=== PATIENT | male | born 1975 | race Caucasian/White ===

== ENCOUNTER 2018-05-29 21:02 | Inpatient (IN) ==
[2018-05-30] MEDS ORDERED: Sod Chloride 0.9% Inj 1,000 ML IV.SIG ONE ×3 (04:46→08:07)
--- NOTE | 2018-05-30 04:50 | ED ---
HPI General Chief complaint: Nausea/Vomiting/Diarrhea Stated complaint: vomitting/cold symp Time Seen by Provider: 05/30/18 04:40 History of Present Illness HPI Narrative: 42-year-old male presents to the emergency department by private transportation for complaint of 4 days of nausea vomiting and diarrhea. Patient states he felt well until Thursday while mowing the grass became lightheaded near syncopal overheated went inside took a shower and subsequently has had nausea vomiting and diarrhea patient denies any known dietary indiscretion well water ingestion or foreign travel. Patient has some abdominal discomfort with vomiting or with diarrhea. Patient denies hematemesis coffee-ground emesis melena hematochezia. Patient has had fever and chills. Patient does not report any sinus pressure drainage severe sudden onset thunderclap headache neck stiffness productive cough dysuria frequency or urgency. Patient is not noticing any skin rash. Patient has history of thyroid dysfunction and no other chronic medical conditions. Patient has been taking his thyroid medication [id number] cold medications. Patient denies other concerns or complaints. Related Data Home Medications Medication Instructions Recorded Confirmed levothyroxine 50 mcg PO DAILY 05/30/18 05/30/18 Allergies Allergy/AdvReac Type Severity Reaction Status Date / Time No Known Allergies Allergy Verified 05/29/18 21:29 Review of Systems Except as stated in HPI: all other systems reviewed are negative PMFSH Medical History Medical History Hypothyroidism (Acute) Rotator cuff arthropathy (Acute) Family History Family History Other Patient denies significant medical history Social History Social History Substance History: No History of Abuse Second Hand Smoke Exposure: Yes Smoking Status: Former smoker Tobacco Type: Cigarettes How Often Do You Have a Drink Containing Alcohol: Never Recent Travel in [place] within the Last 8 Weeks: No Recent Out of Country Travel within the Last 8 Weeks: No Immunization History Tetanus Immunization: <5 Years Hx Influenza Vaccine This Season: Yes Exam Narrative Exam Narrative: GENERAL: Well-nourished, well-developed patient. No acute distress no respiratory distress SKIN: Focused skin assessment warm/dry. HEAD: Normocephalic. EYES: No scleral icterus. No injection or drainage. NECK: Supple, trachea midline. No JVD or lymphadenopathy. CARDIOVASCULAR: Regular rate and rhythm without murmurs, gallops, or rubs. RESPIRATORY: Breath sounds equal bilaterally. No accessory muscle use. GASTROINTESTINAL: Abdomen soft, non-tender, nondistended. MUSCULOSKELETAL: No cyanosis, or edema. BACK: Nontender without obvious deformity. No CVA tenderness. Course Initial Documented Vital Signs Temperature 98.4 F 05/29/18 21: Pulse Rate 86 05/29/18 21:27 Respiratory Rate 18 05/29/18 21: Blood Pressure 166/60 H 05/29/18 21:27 Pulse Oximetry 98 05/29/18 21:27 Last Documented Vital Signs Temperature 99.2 F 05/31/18 04:00 Pulse Rate 76 05/31/18 04:00 Respiratory Rate 18 05/31/18 04:00 Blood Pressure 107/55 L 05/31/18 04:00 Pulse Oximetry 94 L 05/31/18 04:00 Medical Decision Making MDM Narrative Medical decision making narrative: 42-year-old male with thyroid dysfunction presents to the emergency department 4 days of nausea vomiting diarrhea generalized abdominal discomfort associated with vomiting and diarrhea mild headache taking [id number] cold preparation without relief and presents to the emergency department for further evaluation. IV access obtained specimens collected and sent for resulting patient given bolus of normal saline and Zofran ODT Patient complains of headache given additional fluid as well as Toradol 30 mg IV [address] abdomen pelvis ordered Patient time for going to CT complains of severe headache CT brain noncontrast added to imaging study It is [address] brain noncontrast reveals no acute process CT abdomen pelvis reveals no acute intra-abdominal pelvic abnormality but does identify a right lower lobe pneumonia patient has a white count of 19,000 with a right lower lobe infiltrate/pneumonia with reported fever of 102 at home meet sirs/sepsis criterion blood cultures obtained 2 lactic acid ordered additional IV fluids administered and patient given community acquired pneumonia antibiotic coverage with 1 g of Rocephin and 500 mg of azithromycin. Admitting physician called for admission. Patient's case discussed with patient regarding admission and is agreeable. Differential Diagnosis Differential Diagnosis: Viral syndrome, gastroenteritis, inflammatory bowel disease, Medical Records Medical records reviewed: Yes I reviewed the patient's medical records. Lab Data Result diagrams: 05/30/18 05:25 05/30/18 05:25 Lab Results 05/30/18 05/30/18 05/30/18 Range/Units 05:25 05:25 05:25 WBC 19.4 H (4.0-11.0) th/mm3 RBC 4.77 (4.50-5.90) mil/mm3 Hgb 14.7 (13.0-17.0) gm/dL Hct 41.9 (39.0-51.0) % MCV 87.9 (80.0-100.0) fL MCH 30.8 (27.0-34.0) pg MCHC 35.1 (32.0-36.0) % RDW 13.9 (11.6-17.2) % Plt Count 225 (150-450) th/mm3 MPV 7.4 (7.0-11.0) fL Neut % (Auto) 82.5 H (16.0-70.0) % Lymph % (Auto) 6.6 L (9.0-44.0) % [place] % (Auto) 10.5 H (0.0-8.0) % Eos % (Auto) 0.1 (0.0-4.0) % Baso % (Auto) 0.3 (0.0-2.0) % Neut # (Auto) 16.0 H (1.8-7.7) th/mm3 Lymph # (Auto) 1.3 (1.0-4.8) th/mm3 [place] # (Auto) 2.0 H (0.0-0.9) th/mm3 Eos # (Auto) 0.0 (0.0-0.4) th/mm3 Baso # (Auto) 0.1 (0.0-0.2) th/mm3 WBC Differential . Differential Comment Auto diff final Sodium 133 L (136-145) meq/L Potassium 3.6 (3.5-5.1) meq/L Chloride 99 (98-107) meq/L Carbon Dioxide 23.8 (21.0-32.0) meq/L Anion Gap 10 (5-15) meq/L BUN 12 (7-18) mg/dL Creatinine 1.15 (0.60-1.30) mg/dL Estimated GFR 69 L (>89) mL/min Random Glucose 121 H (74-106) mg/dL Lactic Acid (0.4-2.0) mmol/L Calcium 8.7 (8.5-10.1) mg/dL Total Bilirubin 1.0 (0.2-1.0) mg/dL AST 25 (15-37) U/L ALT 25 (12-78) U/L Alkaline Phosphatase 96 (45-117) U/L Total Protein 7.7 (6.4-8.2) g/dL Albumin 3.1 L (3.4-5.0) g/dL Lipase 80 (73-393) U/L TSH 5.720 H (0.358-3.740) uIU/mL Urine Color (Yellw/Straw) Urine Clarity (Clear) Urine pH (5.0-8.5) Ur Specific [place] (1.002-1.035) Urine Protein (Neg-Trace) mg/dL Urine Glucose (UA) (Negative) mg/dL Urine Ketones (Negative) mg/dL Urine Occult Blood (Negative) Urine Nitrate (Negative) Urine Bilirubin (Negative) Urine Urobilinogen (Less than 2) mg/dL Ur Leukocyte Esterase (Negative) Urine RBC (0-3) /hpf Urine WBC (0-5) /hpf Urine Mucus (Occasional) /lpf Micro UA Comment Urine Culture Comments 05/30/18 05/30/18 Range/Units 08:23 08:23 WBC (4.0-11.0) th/mm3 RBC (4.50-5.90) mil/mm3 Hgb (13.0-17.0) gm/dL Hct (39.0-51.0) % MCV (80.0-100.0) fL MCH (27.0-34.0) pg MCHC (32.0-36.0) % RDW (11.6-17.2) % Plt Count (150-450) th/mm3 MPV (7.0-11.0) fL Neut % (Auto) (16.0-70.0) % Lymph % (Auto) (9.0-44.0) % [place] % (Auto) (0.0-8.0) % Eos % (Auto) (0.0-4.0) % Baso % (Auto) (0.0-2.0) % Neut # (Auto) (1.8-7.7) th/mm3 Lymph # (Auto) (1.0-4.8) th/mm3 [place] # (Auto) (0.0-0.9) th/mm3 Eos # (Auto) (0.0-0.4) th/mm3 Baso # (Auto) (0.0-0.2) th/mm3 WBC Differential Differential Comment Sodium (136-145) meq/L Potassium (3.5-5.1) meq/L Chloride (98-107) meq/L Carbon Dioxide (21.0-32.0) meq/L Anion Gap (5-15) meq/L BUN (7-18) mg/dL Creatinine (0.60-1.30) mg/dL Estimated GFR (>89) mL/min Random Glucose (74-106) mg/dL Lactic Acid 1.6 (0.4-2.0) mmol/L Calcium (8.5-10.1) mg/dL Total Bilirubin (0.2-1.0) mg/dL AST (15-37) U/L ALT (12-78) U/L Alkaline Phosphatase (45-117) U/L Total Protein (6.4-8.2) g/dL Albumin (3.4-5.0) g/dL Lipase (73-393) U/L TSH (0.358-3.740) uIU/mL Urine Color Joann (Yellw/Straw) Urine Clarity Hazy H (Clear) Urine pH 6.0 (5.0-8.5) Ur Specific [place] 1.047 H (1.002-1.035) Urine Protein 100 H (Neg-Trace) mg/dL Urine Glucose (UA) Negative (Negative) mg/dL Urine Ketones 20 (Negative) mg/dL Urine Occult Blood Small H (Negative) Urine Nitrate Negative (Negative) Urine Bilirubin Negative (Negative) Urine Urobilinogen 4 or greater (Less than 2) mg/dL Ur Leukocyte Esterase Negative (Negative) Urine RBC 3 (0-3) /hpf Urine WBC 1 (0-5) /hpf Urine Mucus Few H (Occasional) /lpf Micro UA Comment Culture not ind Urine Culture Comments Culture not ind Imaging Data Radiologist's impression: Abdomen X-Ray 05/30/18 04:46 CONCLUSION: Negative examination. Abdomen/Pelvis CT 05/30/18 06:11 CONCLUSION: Right lower lobe pneumonia. Head CT 05/30/18 06:46 CONCLUSION: Unremarkable study. . Chest X-Ray 05/30/18 07:57 CONCLUSION: Right middle lobe infiltrate probable pneumonia not present previously. Discharge Plan Discharge Disposition Patient Disposition: 30 Still Patient Discharge Condition Condition: Stable Discharge Details Diagnosis: Pneumonia, SIRS (systemic inflammatory response syndrome) Physicians Team ED Provider: Akila Perez Primary Care Provider: Enrique Roberto Attending Provider: Vikki Johnson Status ED Status: Left Department Discharge Information Discharge Date/Time: 05/30/18 10:00
--- NOTE | 2018-05-30 05:46 | XR ---
EXAM DATE: 05/30/2018 5:07 AM EDT AGE/SEX: 42 years / Male INDICATIONS: Nausea, vomiting, and headache for four days following possible heat stroke. CLINICAL DATA: This is the patient's initial encounter. Patient reports that signs and symptoms have been present for 4 - 6 days and indicates a pain score of 0/10. MEDICAL/SURGICAL HISTORY: None. None. COMPARISON: No prior exams available for comparison. FINDINGS: Supine and upright views of the abdomen were performed. The abdominal bowel gas pattern is normal. No air-fluid levels are seen. No abnormal masses, calcifications, or organomegaly is seen. The visualiz ed lower lungs are clear. No evidence of free intraperitoneal gas. The osseous structures are unremar kable. CONCLUSION: Negative examination. Electronically signed by: Huseyin Vera MD 05/30/2018 5:45 AM EDT
[2018-05-30 05:47] LABS: Baso # (Auto) 0.1 th/mm3 (0.0-0.2); Baso % (Auto) 0.3 % (0.0-2.0); Eos % (Auto) 0.1 % (0.0-4.0); Hematocrit 41.9 % (39.0-51.0); Hemoglobin 14.7 gm/dL (13.0-17.0); Lymph # (Auto) 1.3 th/mm3 (1.0-4.8); Lymph % (Auto) 6.6 % (9.0-44.0); Mean Corpuscular HGB Conc 35.1 % (32.0-36.0); Mean Corpuscular Hemoglobin 30.8 pg (27.0-34.0); Mean Corpuscular Volume 87.9 fL (80.0-100.0); Mean Platelet Volume 7.4 fL (7.0-11.0); Mono % (Auto) 10.5 % (0.0-8.0); Neut % (Auto) 82.5 % (16.0-70.0); Platelet Count 225 th/mm3 (150-450); Red Blood Count 4.77 mil/mm3 (4.50-5.90); Red Cell Distribution Width 13.9 % (11.6-17.2); White Blood Count 19.4 th/mm3 (4.0-11.0)
[2018-05-30 06:11] LABS: Alanine Aminotransferase 25 U/L (12-78); Albumin 3.1 g/dL (3.4-5.0); Anion Gap 10 meq/L (5-15); Aspartate Aminotransferase 25 U/L (15-37); Blood Urea Nitrogen 12 mg/dL (7-18); Calcium 8.7 mg/dL (8.5-10.1); Carbon Dioxide 23.8 meq/L (21.0-32.0); Chloride 99 meq/L (98-107); Glomerular Filtration Rate 69 mL/min (>89); Glucose,Random 121 mg/dL (74-106); Lipase 80 U/L (73-393); Potassium 3.6 meq/L (3.5-5.1); Sodium 133 meq/L (136-145)
[2018-05-30 06:14] LABS: Alkaline Phosphatase 96 U/L (45-117); Total Protein 7.7 g/dL (6.4-8.2)
[2018-05-30] MEDS ORDERED: Ketorolac Inj 30 MG/ML (IVP) Vial IV.PUSH ONE (06:31)
--- NOTE | 2018-05-30 07:00 | CT ---
EXAM DATE: 05/30/2018 6:53 AM EDT AGE/SEX: 42 years / Male INDICATIONS: Headaches CLINICAL DATA: This is the patient's initial encounter. Patient reports that signs and symptoms have been present for 1 day and indicates a pain score of 10/10. MEDICAL/SURGICAL HISTORY: Hyperthyroidism. None. RADIATION DOSE: 65.71 CTDI (mGy) ;Tabletop exam COMPARISON: No prior exams available for comparison. TECHNIQUE: CT of the head without contrast. Using automated exposure control and adjustment of the mA and/or kV according to patient size, radiation dose was kept as low as reasonably achievable to ob tain optimal diagnostic quality images. DICOM format image data is available electronically for revi ew and comparison. FINDINGS: There is no evidence for intracranial hemorrhage, mass effect, mass lesions, edema, or extra-axial fl uid collections. The visualized bony structures appear intact. The ventricles are normal size for t he patient's age. There are no signs of acute infarction for technique. CONCLUSION: Unremarkable study. . Electronically signed by: Tristian Hamilton MD 05/30/2018 6:58 AM EDT
--- NOTE | 2018-05-30 07:11 | CT ---
EXAM DATE: 05/30/2018 7:01 AM EDT AGE/SEX: 42 years / Male INDICATIONS: Nausea and vomiting. CLINICAL DATA: This is the patient's initial encounter. Patient reports that signs and symptoms have been present for 1 day and indicates a pain score of 0/10. MEDICAL/SURGICAL HISTORY: Hyperparathyroidism. None. ORAL CONTRAST: No oral contrast ingested. RADIATION DOSE: 14.67 CTDI (mGy) COMPARISON: No prior exams available for comparison. TECHNIQUE: Multiple contiguous axial images were obtained through the abdomen and pelvis following b olus infusion of 95 ml Omnipaque 350 (iohexol) nonionic water-soluble contrast as a single exam dos e. No oral contrast ingested. Using automated exposure control and adjustment of the mA and/or kV ac cording to patient size, radiation dose was kept as low as reasonably achievable to obtain optimal di agnostic quality images. DICOM format image data is available electronically for review and comparis on. FINDINGS: Abdomen CT: The spleen, pancreas, kidneys, adrenals are unremarkable. The liver is questionably slightly fatty wi thout focal lesions. Small splenic splenule is identified. There is no evidence for any appreciabl e pathological adenopathy, free fluid, or bowel obstruction. There is dense airspace consolidation r ight lower lobe measures almost 9.1 cm in size characteristic of pneumonia. Pelvic CT: There is no evidence for mass, abscess formation, or any significant adenopathy within the pelvis. CONCLUSION: Right lower lobe pneumonia. Electronically signed by: Tristian Hamilton MD 05/30/2018 7:10 AM EDT
[2018-05-30] MEDS ORDERED: Azithromycin Inj 500 MG in Sodium Chlor 0.9% Inj 250 ML IV.SIG ONE (07:57)
[2018-05-30 08:42] LABS: Bilirubin,Urine Negative (Negative); Clarity,Urine Hazy (Clear); Color,Urine Amber (Yellw/Straw); Glucose,Urine (UA) Negative (Negative); Leukocyte Esterase,Urine Negative (Negative); Mucus,Urine Few /lpf (Occasional); Nitrite,Urine Negative (Negative); Specific Gravity,Urine 1.047 (1.002-1.035); Urobilinogen,Urine 4 or Greater mg/dL (Less than 2)
--- NOTE | 2018-05-30 08:42 | XR ---
EXAM DATE: 05/30/2018 8:30 AM EDT AGE/SEX: 42 years / Male INDICATIONS: Pneumonia. CLINICAL DATA: This is the patient's initial encounter. Patient reports that signs and symptoms have been present for 4 - 6 days and indicates a pain score of 0/10. MEDICAL/SURGICAL HISTORY: None. None. COMPARISON: POI, XR CHEST PA AND LAT, 03/10/2018. . FINDINGS: Right middle lobe parenchymal infiltrate is present not present previously may represent pneumonia. H eart and mediastinum are unremarkable for technique. CONCLUSION: Right middle lobe infiltrate probable pneumonia not present previously. Electronically signed by: Tristian Hamilton MD 05/30/2018 8:41 AM EDT
[2018-05-30] MEDS: Sod Chloride 0.9% Inj 1,000 ML IV.CONT SCH ×2 (09:38→21:07)
[2018-05-30] MEDS: Acetaminophen 325 MG Tablet PO PRN ×2 (10:25→18:26)
[2018-05-30] MEDS: Senna/Docusate Sodium 8.6/50 MG Tablet PO SCH ×2 (10:25→21:07)
[2018-05-30] MEDS: Levothyroxine 50 MCG Tablet PO SCH (10:30)
[2018-05-30] MEDS ORDERED: Morphine Inj 4 MG/ML Vial IV.PUSH PRN (10:59)
--- NOTE | 2018-05-30 11:06 | P.HPIM ---
History of Present Illness Primary Care Physician: Enrique Roberto Chief Complaint: DAMON, diarrhea, N/V, cough History of Present Illness: The patient is a 42-year-old male with a past medical history of hypothyroidism who is presenting to the hospital with multiple complaints. The patient said that on Thursday afternoon he was mowing his when all of a sudden he felt a headache start and he also started to feel faint. He thought he might of had dehydration or heatstroke. He stopped mowing the lawn and took a shower. He continued to experience the headache which he stated was located at the front of his head. He said the headache has been nonstop since then. Later on in the evening he developed diarrhea as well as nausea and vomiting. He says the diarrhea has gotten better at this point but he continues to have bouts of nausea and vomiting. He has endorsed reeks of blood in his vomit recently. He has had associated abdominal cramping. He also endorses some shortness of breath and cough. He endorses sputum production and says the color changes from green to nettles to brown. He has had a fever up to 103 at home. He says he has been unable to eat since Thursday because everything goes right through him. He has also had a hard time drinking. He denies any sick contacts. 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 He denies any animal contacts. He states he quit smoking 10 days ago. - Diagnosis (1) Pneumonia (2) SIRS (systemic inflammatory response syndrome) Inpatient Certification: I certify that the inpatient services were ordered in accordance with Medicare regulations governing the order. This includes certification that hospital inpatient services are reasonable and necessary and in the case of services not specified as inpatient-only under 42 CFR 419.22(n), that they are appropriately provided as inpatient services in accordance to with the 2-midnight benchmark under 43 CFR 412.3(e) Estimated Total Length of Stay (Days): 2 Plans for Post Hospital Care: Home Review of Systems All other systems reviewed negative except as stated [facility] - History History Provided By: Patient - Medical History Medical History: Medical History (Last Reviewed 05/30/18 @ 04:49 by Akila Perez MD) Hypothyroidism Rotator cuff arthropathy - Family History Family History: Family History (Last Updated 05/30/18 @ 11:05 by Nick Johnson DO) Other Patient denies significant medical history - Tobacco History Tobacco Use In Past 30 Days: Yes (He smoked 1 PPD but quit 10 days ago) Smoking Status: Former smoker Tobacco Type: Cigarettes - Alcohol History How Often Do You Have a Drink Containing Alcohol: Never - Substance Use History Substance History: No History of Abuse - Travel History Recent Travel in the [place] Within the Last 8 Weeks: No Recent Travel Out of the Country Within the Last 8 Weeks: No - Immunization History Tetanus Immunization: <5 Years Hx Influenza Vaccine This Season: Yes Medications and Allergies Active Medications: Active Medications Acetaminophen (Tylenol) 650 mg PO Q4H PRN PRN Reason: Temp > 100.4 Last Admin: 05/30/18 10:25 Dose: 650 mg Azithromycin 500 mg/ Sodium (Chloride) 250 mls @ 250 mls/hr IV.SIG Q24H AYDIN Ceftriaxone Sodium 1,000 mg/ (Sodium Chloride) 100 mls @ 200 mls/hr IV.SIG Q24H AYDIN Sodium Chloride (Ns Inj) 1,000 mls @ 100 mls/hr IV.CONT .Q10H [facility] Last Admin: 05/30/18 09:38 Dose: 100 mls/hr Levothyroxine Sodium (Synthroid) 50 mcg PO DAILY@0600 [facility] Last Admin: 05/30/18 10:30 Dose: 50 mcg Oxycodone HCl (Roxicodone) 5 mg PO Q4H PRN PRN Reason: pain 3-10 Senna/Docusate Sodium (Bernice-Colace) 1 tab PO BID [facility] Last Admin: 05/30/18 10:25 Dose: Not Given Sodium Chloride (Ns Flush) 2 ml IV.FLUSH PRN PRN PRN Reason: FLUSH AFTER USING IV ACCESS Temazepam (Restoril) 15 mg PO HS PRN PRN Reason: INSOMNIA Allergies Allergy/AdvReac Type Severity Reaction Status Date / Time No Known Allergies Allergy Verified 05/29/18 21:29 Home Medications Medication Instructions Recorded Confirmed Type levothyroxine 50 mcg PO DAILY 05/30/18 05/30/18 History Exam Vital signs: Vital Signs 05/29/18 21:27 05/30/18 03:37 05/30/18 07:44 Temperature 98.4 F Pulse Rate 86 80 72 Respiratory Rate 18 16 14 Blood Pressure 166/60 H 148/82 H 130/74 Pulse Oximetry 98 98 97 Intake & Output 05/29/18 05/30/18 05/30/18 18:59 06:59 18:59 Weight 111.13 kg Narrative: GENERAL: Well-nourished, well-developed patient. No acute distress. SKIN: Focused skin assessment warm/dry. HEAD: Normocephalic. EYES: No scleral icterus. No injection or drainage. NECK: Supple, trachea midline. No JVD or lymphadenopathy. CARDIOVASCULAR: Regular rate and rhythm without murmurs, gallops, or rubs. RESPIRATORY: Breath sounds equal bilaterally. No accessory muscle use. GASTROINTESTINAL: Abdomen soft, non-tender, nondistended. MUSCULOSKELETAL: No cyanosis, or edema. BACK: Nontender without obvious deformity. No CVA tenderness. NEURO: No gross deficits. Results - Labs CBC & Chem 7: 05/30/18 05:25 05/30/18 05:25 Labs: Short CBC 05/30/18 Range/Units 05:25 WBC 19.4 H (4.0-11.0) th/mm3 Hgb 14.7 (13.0-17.0) gm/dL Hct 41.9 (39.0-51.0) % Plt Count 225 (150-450) th/mm3 BMP 05/30/18 05:25 Sodium 133 L Potassium 3.6 Chloride 99 Carbon Dioxide 23.8 BUN 12 Creatinine 1.15 Calcium 8.7 Liver Function 05/30/18 Range/Units 05:25 Total Bilirubin 1.0 (0.2-1.0) mg/dL AST 25 (15-37) U/L ALT 25 (12-78) U/L Alkaline Phosphatase 96 (45-117) U/L Albumin 3.1 L (3.4-5.0) g/dL Urine 05/30/18 Range/Units 08:23 Urine Color Joann (Yellw/Straw) Urine Clarity Hazy H (Clear) Urine pH 6.0 (5.0-8.5) Ur Specific [place] 1.047 H (1.002-1.035) Urine Protein 100 H (Neg-Trace) mg/dL Urine Glucose (UA) Negative (Negative) mg/dL - Imaging Impressions Abdomen X-Ray 05/30/18 04:46 CONCLUSION: Negative examination. Abdomen/Pelvis CT 05/30/18 06:11 CONCLUSION: Right lower lobe pneumonia. Head CT 05/30/18 06:46 CONCLUSION: Unremarkable study. . Chest X-Ray 05/30/18 07:57 CONCLUSION: Right middle lobe infiltrate probable pneumonia not present previously. Caprini VTE Risk Assessment Caprini VTE Risk Assessment: Moderate/High Risk (score >= 2) Caprini Risk Assessment Model: Point Value = 1 Point Value = 2 Point Value = 3 Point Value = 5 Age 41-60 Minor surgery BMI > 25 kg/m2 Swollen legs Varicose veins or History of unexplained or recurrent spontaneous Oral contraceptives or hormone replacement Sepsis (< 1 month) Serious lung disease, including pneumonia (< 1 month) Abnormal pulmonary function Acute myocardial infarction Congestive heart failure (< 1 month) History of inflammatory bowel disease Medical patient at bed rest Age 61-74 Arthroscopic surgery Major open surgery (> 45 min) Laparoscopic surgery (> 45 min) Malignancy Confined to bed (> 72 hours) Immobilizing plaster cast Central venous access Age >= 75 History of VTE Family history of VTE Factor V Leiden Prothrombin [id number] Lupus anticoagulant Anticardiolipin antibodies Elevated serum homocysteine Heparin-induced thrombocytopenia Other congenital or acquired thrombophilia Stroke (< 1 month) Elective arthroplasty Hip, pelvis, or leg fracture Acute spinal cord injury (< 1 month) Prophylaxis Regimen: Total Risk Factor Score Risk Level Prophylaxis Regimen 0-1 Low Early ambulation 2 Moderate Order ONE of the following: *Sequential Compression Device (SCD) *Heparin 5000 units SQ BID 3-4 Higher Order ONE of the following medications: *Heparin 5000 units SQ TID *Enoxaparin/Lovenox 40 mg SQ daily (WT < 150 kg, CrCl > 30 mL/min) *Enoxaparin/Lovenox 30 mg SQ daily (WT < 150 kg, CrCl > 10-29 mL/min) *Enoxaparin/Lovenox 30 mg SQ BID (WT < 150 kg, CrCl > 30 mL/min) AND/OR *Sequential Compression Device (SCD) 5 or more Highest Order ONE of the following medications: *Heparin 5000 units SQ TID (Preferred with Epidurals) *Enoxaparin/Lovenox 40 mg SQ daily (WT < 150 kg, CrCl > 30 mL/min) *Enoxaparin/Lovenox 30 mg SQ daily (WT < 150 kg, CrCl > 10-29 mL/min) *Enoxaparin/Lovenox 30 mg SQ BID (WT < 150 kg, CrCl > 30 mL/min) AND *Sequential Compression Device (SCD) Assessment and Plan - Assessment (1) Pneumonia Code(s): J18.9 - Pneumonia, unspecified organism Status: Acute (2) SIRS (systemic inflammatory response syndrome) Code(s): R65.10 - Systemic inflammatory response syndrome (SIRS) of non- infectious origin without acute organ dysfunction Status: Acute - Plan CAP The pt has significant leukocytosis and imaging is indicative of right sided pneumonia. - continue IV ceftriaxone and azithromycin (Started 05/30). - IVFs. - follow blood and sputum culture data. - incentive spirometry. - encourage ambulation. DAMON CT head unremarkable. May be a migraine. - Reglan and Toradol as needed. - oxycodone and morphine as needed along with a bowel regimen. N/V/D Diarrhea is improving. May be viral syndrome. - antiemetics as needed. - ADAT. - IVFs. HTN Likely a stress reaction. - monitor and use PRN meds. Hypothyroidism On levothyroxine. - check a TSH. Hyponatremia Likely hypovolemic. - IVFs and monitor. PPx: SCDs (1) Pneumonia Qualifiers: Pneumonia type: due to unspecified organism Laterality: right Lung location : lower lobe of lung Qualified Code(s): J18.1 - Lobar pneumonia, unspecified organism
[2018-05-30] MEDS ORDERED: Ketorolac Inj 30 MG/ML (IVP) Vial IV.PUSH PRN (15:00)
[2018-05-31] MEDS: Sod Chloride 0.9% Inj 1,000 ML IV.CONT SCH (04:27)
[2018-05-31] MEDS: Levothyroxine 50 MCG Tablet PO SCH (06:00)
[2018-05-31] MEDS: Senna/Docusate Sodium 8.6/50 MG Tablet PO SCH ×2 (09:29→21:32)
[2018-05-31] MEDS: Azithromycin Inj 500 MG in Sodium Chlor 0.9% Inj 250 ML IV.SIG SCH (09:29)
[2018-05-31 09:49] LABS: Baso % (Auto) 0.2 % (0.0-2.0); Eos # (Auto) 0.1 th/mm3 (0.0-0.4); Eos % (Auto) 0.7 % (0.0-4.0); Hematocrit 36.7 % (39.0-51.0); Hemoglobin 12.7 gm/dL (13.0-17.0); Lymph # (Auto) 1.5 th/mm3 (1.0-4.8); Lymph % (Auto) 11.3 % (9.0-44.0); Mean Corpuscular HGB Conc 34.4 % (32.0-36.0); Mean Corpuscular Hemoglobin 30.4 pg (27.0-34.0); Mean Corpuscular Volume 88.3 fL (80.0-100.0); Mono # (Auto) 1.5 th/mm3 (0.0-0.9); Mono % (Auto) 11.8 % (0.0-8.0); Neut # (Auto) 9.9 th/mm3 (1.8-7.7); Platelet Count 228 th/mm3 (150-450); Red Blood Count 4.16 mil/mm3 (4.50-5.90); Red Cell Distribution Width 13.8 % (11.6-17.2); White Blood Count 13.1 th/mm3 (4.0-11.0)
[2018-05-31 10:08] LABS: Albumin 2.3 g/dL (3.4-5.0); Anion Gap 10 meq/L (5-15); Aspartate Aminotransferase 28 U/L (15-37); Blood Urea Nitrogen 8 mg/dL (7-18); Carbon Dioxide 20.6 meq/L (21.0-32.0); Chloride 106 meq/L (98-107); Glomerular Filtration Rate Greater Than 89 mL/min (>89); Glucose,Random 108 mg/dL (74-106); Potassium 3.2 meq/L (3.5-5.1); Sodium 137 meq/L (136-145)
[2018-05-31 10:12] LABS: Alanine Aminotransferase 30 U/L (12-78); Alkaline Phosphatase 77 U/L (45-117); Total Protein 6.2 g/dL (6.4-8.2)
--- NOTE | 2018-05-31 14:35 | P.PN ---
Subjective Interval history: Follow up CAP Patient endorses continued cough, SOB and headache Cough worse with talking, laying flat and deep breathing headache is described as his, "whole head," and behind his eyes Physical Exam Vital signs: Vital Signs 05/30/18 16:00 05/30/18 16:15 05/30/18 20:00 Temperature 100.4 F H 99.9 F H Pulse Rate 78 78 65 Respiratory Rate 18 19 Blood Pressure 142/74 H 121/64 Pulse Oximetry 96 94 L 05/31/18 00:00 05/31/18 04:00 05/31/18 08:00 Temperature 99.0 F 99.2 F 99.3 F Pulse Rate 71 76 68 Respiratory Rate 18 18 16 Blood Pressure 123/65 107/55 L 115/62 Pulse Oximetry 95 94 L 94 L 05/31/18 12:00 Temperature 99.5 F Pulse Rate 70 Respiratory Rate 16 Blood Pressure 129/67 Pulse Oximetry 95 Intake & Output 05/30/18 05/31/18 05/31/18 18:59 06:59 18:59 Intake Total 2380 / 2380 Balance 2380 / 2380 Weight 113.3 kg Intake: IV 1900 / 1900 NS Inj 1,000 ML @ 100 mls/hr IV 1900 / 1900 .CONT .Q10H AYDIN Rx#:[id number] Oral 480 / 480 Other: # Voids 4 Date of Last Bowel Movement 05/29/18 05/30/18 Narrative: GENERAL: This is a well-nourished, well-developed patient, in no apparent distress. CARDIOVASCULAR: Regular rate and rhythm RESPIRATORY: coarse R Middle and lower lobe, clear on L GASTROINTESTINAL: Abdomen soft, non-tender, nondistended. Normal active bowel sounds MUSCULOSKELETAL: Extremities without clubbing, cyanosis, or edema. NEURO: Alert & Oriented x4 to person, place, time, situation. Moves all ext x4 Results - Labs CBC & Chem 7: 05/31/18 08:18 05/31/18 08:18 Laboratory Results - last 24 hr 05/31/18 05/31/18 05/31/18 08:18 08:18 08:18 WBC 13.1 H RBC 4.16 L Hgb 12.7 L D Hct 36.7 L MCV 88.3 MCH 30.4 MCHC 34.4 RDW 13.8 Plt Count 228 MPV 8.0 Neut % (Auto) 76.0 H Lymph % (Auto) 11.3 Cobb % (Auto) 11.8 H Eos % (Auto) 0.7 Baso % (Auto) 0.2 Neut # (Auto) 9.9 H Lymph # (Auto) 1.5 Cobb # (Auto) 1.5 H Eos # (Auto) 0.1 Baso # (Auto) 0.0 WBC Differential . Differential Comment Auto diff final Sodium 137 Potassium 3.2 L Chloride 106 Carbon Dioxide 20.6 L Anion Gap 10 BUN 8 Creatinine 0.80 Estimated GFR Greater than 89 Random Glucose 108 H Calcium 8.0 L Total Bilirubin 0.8 AST 28 ALT 30 Alkaline Phosphatase 77 Total Protein 6.2 L D Albumin 2.3 L D Free T4 0.91 Microbiology 05/30/18 08:23 Blood - Peripheral Aerobic Blood Culture - Preliminary No growth in 1 day 05/30/18 08:23 Blood - Peripheral Anaerobic Blood Culture - Preliminary No growth in 1 day 05/30/18 08:18 Blood - Peripheral Aerobic Blood Culture - Preliminary No growth in 1 day 05/30/18 08:18 Blood - Peripheral Anaerobic Blood Culture - Preliminary No growth in 1 day Assessment and Plan - Plan CAP The pt has significant leukocytosis and imaging is indicative of right sided pneumonia. - WBC on admission 19.4 -> 13.1 (05/31) - continue IV ceftriaxone and azithromycin (Started 05/30). - add Tessalon Perles - add duonebs Q6H while awake and as needed - IVFs initially then DC'd as patient tolerating PO - follow blood and sputum culture data. - incentive spirometry. - encourage ambulation. DAMON CT head unremarkable. May be a migraine. - Reglan and Toradol as needed. - oxycodone and morphine as needed along with a bowel regimen. N/V/D Diarrhea is improving. May be viral syndrome. - antiemetics as needed. - tolerating diet, DC IVFs HTN - resolved Likely a stress reaction. - monitor and use PRN meds. Hypothyroidism On levothyroxine. - TSH 5.720, free T4 0.91 Hyponatremia Likely hypovolemic. - IVFs and monitor. PPx: SCDs
[2018-05-31] MEDS: Acetaminophen 325 MG Tablet PO PRN (17:39)
[2018-06-01] MEDS: Benzonatate 100 MG Capsule PO PRN ×2 (00:19→09:43)
[2018-06-01] MEDS: Temazepam 15 MG Capsule PO PRN ×2 (02:16→20:07)
[2018-06-01] MEDS: Levothyroxine 50 MCG Tablet PO SCH (05:28)
[2018-06-01 09:15] LABS: Baso # (Auto) 0.1 th/mm3 (0.0-0.2); Baso % (Auto) 0.5 % (0.0-2.0); Eos # (Auto) 0.3 th/mm3 (0.0-0.4); Eos % (Auto) 2.4 % (0.0-4.0); Hematocrit 37.4 % (39.0-51.0); Lymph % (Auto) 16.7 % (9.0-44.0); Mean Corpuscular HGB Conc 34.7 % (32.0-36.0); Mean Corpuscular Hemoglobin 30.6 pg (27.0-34.0); Mean Corpuscular Volume 88.1 fL (80.0-100.0); Mean Platelet Volume 7.4 fL (7.0-11.0); Mono # (Auto) 1.5 th/mm3 (0.0-0.9); Mono % (Auto) 12.9 % (0.0-8.0); Neut # (Auto) 8.1 th/mm3 (1.8-7.7); Neut % (Auto) 67.5 % (16.0-70.0); Platelet Count 262 th/mm3 (150-450); Red Blood Count 4.25 mil/mm3 (4.50-5.90); Red Cell Distribution Width 13.9 % (11.6-17.2)
[2018-06-01 09:35] LABS: Anion Gap 12 meq/L (5-15); Blood Urea Nitrogen 6 mg/dL (7-18); Calcium 8.1 mg/dL (8.5-10.1); Carbon Dioxide 21.4 meq/L (21.0-32.0); Chloride 107 meq/L (98-107); Glomerular Filtration Rate Greater Than 89 mL/min (>89); Glucose,Random 117 mg/dL (74-106); Potassium 3.4 meq/L (3.5-5.1); Sodium 140 meq/L (136-145)
[2018-06-01] MEDS: Senna/Docusate Sodium 8.6/50 MG Tablet PO SCH ×2 (09:43→20:08)
--- NOTE | 2018-06-01 09:59 | P.PN ---
Subjective Interval history: Follow up CAP Patient endorses continued cough reports SOB is improving but not yet back to normal headache intermitted Physical Exam Vital signs: Vital Signs 05/31/18 12:00 05/31/18 16:00 05/31/18 20:00 Temperature 99.5 F 100.4 F H 99.3 F Pulse Rate 70 77 67 Respiratory Rate 16 18 17 Blood Pressure 129/67 114/63 145/63 H Pulse Oximetry 95 94 L 94 L 05/31/18 20:25 06/01/18 00:00 06/01/18 04:00 Temperature 98.4 F 98.8 F Pulse Rate 59 L 79 72 Respiratory Rate 18 17 20 Blood Pressure 124/59 L 122/57 L Pulse Oximetry 94 L 98 95 06/01/18 07:54 06/01/18 08:00 Temperature 98.0 F Pulse Rate 65 65 Respiratory Rate 17 20 Blood Pressure 142/77 H Pulse Oximetry 95 95 Intake & Output 05/31/18 06/01/18 06/01/18 18:59 06:59 18:59 Intake Total 480 / 480 240 / 240 Balance 480 / 480 240 / 240 Weight 114.1 kg Intake: Oral 480 / 480 240 / 240 Other: # Voids 840 6 Date of Last Bowel Movement 05/30/18 05/30/18 # Bowel Movements 0 Narrative: GENERAL: This is a well-nourished, well-developed patient, in no apparent distress. CARDIOVASCULAR: Regular rate and rhythm RESPIRATORY: bilateral lower crackles GASTROINTESTINAL: Abdomen soft, non-tender, nondistended. Normal active bowel sounds MUSCULOSKELETAL: Extremities without clubbing, cyanosis, or edema. NEURO: Alert & Oriented x4 to person, place, time, situation. Moves all ext x4 Results - Labs CBC & Chem 7: 06/01/18 09:00 06/01/18 09:00 Laboratory Results - last 24 hr 05/31/18 05/31/18 06/01/18 08:18 08:18 09:00 WBC 12.0 H RBC 4.25 L Hgb 13.0 Hct 37.4 L MCV 88.1 MCH 30.6 MCHC 34.7 RDW 13.9 Plt Count 262 MPV 7.4 Neut % (Auto) 67.5 Lymph % (Auto) 16.7 [place] % (Auto) 12.9 H Eos % (Auto) 2.4 Baso % (Auto) 0.5 Neut # (Auto) 8.1 H Lymph # (Auto) 2.0 [place] # (Auto) 1.5 H Eos # (Auto) 0.3 Baso # (Auto) 0.1 WBC Differential . Differential Comment Auto diff final Sodium 137 Potassium 3.2 L Chloride 106 Carbon Dioxide 20.6 L Anion Gap 10 BUN 8 Creatinine 0.80 Estimated GFR Greater than 89 Random Glucose 108 H Calcium 8.0 L Total Bilirubin 0.8 AST 28 ALT 30 Alkaline Phosphatase 77 Total Protein 6.2 L D Albumin 2.3 L D Free T4 0.91 06/01/18 09:00 WBC RBC Hgb Hct MCV MCH MCHC RDW Plt Count MPV Neut % (Auto) Lymph % (Auto) [place] % (Auto) Eos % (Auto) Baso % (Auto) Neut # (Auto) Lymph # (Auto) [place] # (Auto) Eos # (Auto) Baso # (Auto) WBC Differential Differential Comment Sodium 140 Potassium 3.4 L Chloride 107 Carbon Dioxide 21.4 Anion Gap 12 BUN 6 L Creatinine 0.86 Estimated GFR Greater than 89 Random Glucose 117 H Calcium 8.1 L Total Bilirubin AST ALT Alkaline Phosphatase Total Protein Albumin Free T4 Microbiology 05/30/18 08:23 Blood - Peripheral Aerobic Blood Culture - Preliminary No growth in 1 day 05/30/18 08:23 Blood - Peripheral Anaerobic Blood Culture - Preliminary No growth in 1 day 05/30/18 08:18 Blood - Peripheral Aerobic Blood Culture - Preliminary No growth in 1 day 05/30/18 08:18 Blood - Peripheral Anaerobic Blood Culture - Preliminary No growth in 1 day Assessment and Plan - Plan CAP The pt has significant leukocytosis and imaging is indicative of right sided pneumonia. - WBC on admission 19.4 -> 13.1 (05/31) -> 12 (06/01) - continue IV ceftriaxone and azithromycin (Started 05/30). - Tessalon Melissa patient offered Robitussin with codeine he declines - duonebs Q6H while awake and as needed - add mucinex - encouraged IS - IVFs DC'd as patient tolerating PO - follow blood and sputum culture pending - encourage ambulation. DAMON CT head unremarkable. May be a migraine. - Reglan and Toradol as needed. - oxycodone and morphine as needed along with a bowel regimen. N/V/D- resolved Diarrhea is improving. May be viral syndrome. - antiemetics as needed. - tolerating diet, DC IVFs - reports appetite is back HTN - resolved Likely a stress reaction. - monitor and use PRN meds. Hypothyroidism On levothyroxine. - TSH 5.720, free T4 0.91 Hyponatremia - resolved Likely hypovolemic. PPx: SCDs Discussed with supervising physician Dr. Cox
[2018-06-01] MEDS: Azithromycin Inj 500 MG in Sodium Chlor 0.9% Inj 250 ML IV.SIG SCH (10:28)
[2018-06-01] MEDS: guaiFENesin 600 MG ER Tablet PO SCH ×2 (11:40→20:07)
[2018-06-02] MEDS: Levothyroxine 50 MCG Tablet PO SCH (07:36)
--- NOTE | 2018-06-02 07:44 | XR ---
EXAM DATE: 06/02/2018 7:40 AM EDT AGE/SEX: 42 years / Male INDICATIONS: Short of breath. CLINICAL DATA: This is the patient's subsequent encounter. Patient reports that signs and symptoms h ave been present for 4 - 6 days and indicates a pain score of 0/10. MEDICAL/SURGICAL HISTORY: None. None. COMPARISON: [facility] – [place], [place], CHEST 1V SINGLE AP, 05/30/2018. . FINDINGS: Improved airspace disease in the right middle lobe. Cardiomediastinal contours are within normal limi ts. Bony thorax is intact. CONCLUSION: 1. Improved right middle lobe airspace consolidation. Electronically signed by: Huseyin Vera MD 06/02/2018 7:43 AM EDT
[2018-06-02 08:44] VITALS: PULSE 70; RESP 20
[2018-06-02] MEDS: Senna/Docusate Sodium 8.6/50 MG Tablet PO SCH (08:55)
[2018-06-02] MEDS: guaiFENesin 600 MG ER Tablet PO SCH (08:55)
[2018-06-02 09:02] VITALS: BP 140/78; TEMP 97.3; O2SAT 91
--- NOTE | 2018-06-02 09:18 | P.DS ---
Date of admission: 05/30/18 08:44 Primary care physician: Enrique Roberto Anticipated date of discharge: 06/02/18 Brief History from admission: The patient is a 42-year-old male with a past medical history of hypothyroidism who is presenting to the hospital with multiple complaints. The patient said that on Thursday afternoon he was mowing his when all of a sudden he felt a headache start and he also started to feel faint. He thought he might of had dehydration or heatstroke. He stopped mowing the lawn and took a shower. He continued to experience the headache which he stated was located at the front of his head. He said the headache has been nonstop since then. Later on in the evening he developed diarrhea as well as nausea and vomiting. He says the diarrhea has gotten better at this point but he continues to have bouts of nausea and vomiting. He has endorsed reeks of blood in his vomit recently. He has had associated abdominal cramping. He also endorses some shortness of breath and cough. He endorses sputum production and says the color changes from green to nettles to brown. He has had a fever up to 103 at home. He says he has been unable to eat since Thursday because everything goes right through him. He has also had a hard time drinking. He denies any sick contacts. 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 He denies any animal contacts. He states he quit smoking 10 days ago. DS: Diagnosis - Discharge Diagnosis (1) Pneumonia Status: Acute DS: Medications - Discharge Medications Prescriptions: azithromycin 500 mg PO DAILY 3 Days #6 tab cefuroxime axetil 500 mg PO Q12H 5 Days #20 tab guaifenesin [Mucinex] 600 mg PO BID #14 tab DS: Summary Hospital Course: Community Acquired Pneumonia: The pt had significant leukocytosis and imaging is indicative of right sided pneumonia. WBC on admission 19.4 -> 13.1 (05/31) - > 12 (06/01) -> 9.4 (06/02). Continued on IV ceftriaxone and azithromycin (Started 05/30). Iron Torres patient offered Robitussin with codeine he declines. Duonebs Q6H while awake and as needed. Given mucinex. Encouraged IS. IVFs DC'd as patient tolerating PO. Blood cultures with no growth to date. Patient much improved, stable on room air, wants to go home, discharging on oral antibiotics. N/V/D: suspect patient with component of viral syndrome upon arrival. Given IV fluids and antiemetics as needed. Nausea, vomiting, and diarrhea much improved. He is tolerating oral intake. Appetite returned. Stable for discharge. Hypothyroidism: on levothyroxine, continued. Outpatient follow-up. Hyponatremia: likely hypovolemic. Resolved - Time Spent with Patient Total time spent providing and/or coordinating discharge services: Less than 30 minutes - Quality: VTE Deep Vein Thrombosis/Pulmonary Embolism Present on Admission: No Exam Vital signs: Vital Signs 06/01/18 12:00 06/01/18 13:55 06/01/18 16:00 Temperature 98.1 F 99.7 F H Pulse Rate 64 71 67 Respiratory Rate 20 17 20 Blood Pressure 134/83 134/77 Pulse Oximetry 95 95 06/01/18 19:50 06/01/18 20:00 06/02/18 00:00 Temperature 97.8 F 98.5 F Pulse Rate 66 72 64 Respiratory Rate 18 17 19 Blood Pressure 138/79 128/78 Pulse Oximetry 97 94 L 06/02/18 04:00 06/02/18 08:00 06/02/18 08:44 Temperature 98.2 F 97.3 F L Pulse Rate 59 L 63 70 Respiratory Rate 17 16 20 Blood Pressure 126/79 140/78 Pulse Oximetry 95 91 L Intake & Output 06/01/18 06/02/18 06/02/18 18:59 06:59 18:59 Intake Total 420 / 420 240 / 240 100 / 100 Output Total 1300 / 1300 400 / 400 Balance -880 / -880 -160 / -160 100 / 100 Weight 112.9 kg Intake: IV 100 / 100 Rocephin Inj 1,000 MG In NS Inj 100 / 100 100 ML @ 200 mls/hr IV.SIG Q24H AYDIN Rx#:[id number] Oral 420 / 420 240 / 240 Output: Urine 1300 / 1300 400 / 400 Other: # Voids 5 Date of Last Bowel Movement 06/01/18 06/01/18 # Bowel Movements 0 Narrative: GENERAL: Well-nourished, well-developed pleasant middle-age male patient in NAD. SKIN: Warm and dry. No rash. HEENT: Normocephalic. Atraumatic. Pupils equal and round. Mucous membranes pink and moist. NECK: Supple. Trachea midline. CARDIOVASCULAR: Regular rate and rhythm. No murmur appreciated. RESPIRATORY: No accessory muscle use. Clear to auscultation. Breath sounds equal bilaterally. GASTROINTESTINAL: Abdomen soft, non-tender, nondistended. Normoactive bowel sounds x4. MUSCULOSKELETAL: No obvious deformities. Extremities without clubbing, cyanosis , or edema. NEUROLOGICAL: Awake and alert. No obvious cranial nerve deficits. Motor grossly within normal limits. Moving all extremities spontaneously. Normal speech. PSYCHIATRIC: Appropriate mood and affect; insight and judgment normal. Results Procedures completed during hospitalization: None. Labs on day of discharge: Labs from last 24 hours 06/01/18 09:00 Sodium 140 Potassium 3.4 L Chloride 107 Carbon Dioxide 21.4 Anion Gap 12 BUN 6 L Creatinine 0.86 Estimated GFR Greater than 89 Random Glucose 117 H Calcium 8.1 L Preliminary micro results at discharge 05/30/18 08:23 Aerobic Blood Culture - Preliminary Blood - Peripheral No growth in 2 days Anaerobic Blood Culture - Preliminary No growth in 2 days 05/30/18 08:18 Aerobic Blood Culture - Preliminary Blood - Peripheral No growth in 2 days Anaerobic Blood Culture - Preliminary No growth in 2 days - Impressions ITS Impressions Abdomen X-Ray 05/30/18 04:46 CONCLUSION: Negative examination. Abdomen/Pelvis CT 05/30/18 06:11 CONCLUSION: Right lower lobe pneumonia. Head CT 05/30/18 06:46 CONCLUSION: Unremarkable study. . Chest X-Ray 06/02/18 06:00 CONCLUSION: 1. Improved right middle lobe airspace consolidation. Discharge Plan - Discharge Disposition Patient Disposition: Discharge Home - Discharge Condition Condition: Stable - Discharge Order Discharge Orders: Discharge Order (Routine); Ordered 06/02/18 Ordered By: Palak La - Discharge Details Anticipated Discharge Date: 06/02/18 - Physicians Team Primary Care Provider: Enrique Roberto Attending Provider: Josiah Cox
[2018-06-02] MEDS: Azithromycin Inj 500 MG in Sodium Chlor 0.9% Inj 250 ML IV.SIG SCH (09:41)
[2018-06-02 09:45] LABS: Baso % (Auto) 0.5 % (0.0-2.0); Eos # (Auto) 0.5 th/mm3 (0.0-0.4); Hematocrit 38.5 % (39.0-51.0); Hemoglobin 13.5 gm/dL (13.0-17.0); Lymph # (Auto) 1.9 th/mm3 (1.0-4.8); Lymph % (Auto) 20.1 % (9.0-44.0); Mean Corpuscular Hemoglobin 30.7 pg (27.0-34.0); Mean Corpuscular Volume 87.8 fL (80.0-100.0); Mono # (Auto) 1.2 th/mm3 (0.0-0.9); Mono % (Auto) 12.6 % (0.0-8.0); Neut # (Auto) 5.8 th/mm3 (1.8-7.7); Neut % (Auto) 61.8 % (16.0-70.0); Platelet Count 300 th/mm3 (150-450); Red Blood Count 4.39 mil/mm3 (4.50-5.90); Red Cell Distribution Width 13.8 % (11.6-17.2); White Blood Count 9.4 th/mm3 (4.0-11.0)
[2018-06-02 10:05] LABS: Anion Gap 11 meq/L (5-15); Blood Urea Nitrogen 5 mg/dL (7-18); Calcium 8.6 mg/dL (8.5-10.1); Carbon Dioxide 23.2 meq/L (21.0-32.0); Chloride 106 meq/L (98-107); Glomerular Filtration Rate Greater Than 89 mL/min (>89); Glucose,Random 103 mg/dL (74-106); Potassium 3.4 meq/L (3.5-5.1); Sodium 140 meq/L (136-145)
== END 2018-06-02 13:45 | disposition home or self-care (01) ==
LOC: NED 21:02 → NEDA 05-30 08:44 → N04 05-30 09:54
PROVIDERS: ADMIT Family Medicine; ATTEND Family Medicine